=== PATIENT | female | born 2000 | race American Indian/Alaskan Native ===

== ENCOUNTER 2020-10-17 13:49 | Emergency (ER) | payer MEDICAID ==
[2020-10-17 14:15] VITALS: BP 144/65
--- NOTE | 2020-10-17 14:31 | Emergency Department Report ---
ED ENT HPI - General Chief complaint: Dental/Oral Stated complaint: TOOTHACHE Time Seen by Provider: 10/17/20 14:12 Source: patient Mode of arrival: Ambulatory Limitations: No Limitations - History of Present Illness Initial comments: Patient is a 20-year-old female presents emergency room complaints of a toothache that began a week ago. She states that her left lower wisdom tooth is causing her pain. She states that she has noticed some swelling around the area. She states that she went to a dentist and they referred her to oral surgeon. She states that she has an appointment with a oral surgeon in a week. She states that she is not currently on any medications. She denies any fever, nausea, vomiting, diarrhea, difficulty swallowing, difficulty breathing. Past medical history of asthma, anemia, allergic rhinitis. She states that aspirin gives her an asthma exacerbation. - Related Data Previous Rx's Medication Instructions Recorded Last Taken Type Acetaminophen 500 mg PO Q8HR PRN #20 capsule 10/17/20 Unknown Rx Chlorhexidine Mouthwash [Peridex] 15 ml MM BID #1 bottle 10/17/20 Unknown Rx Penicillin Vk [Veetids TAB] 500 mg PO QID 7 Days #56 tablet 10/17/20 Unknown Rx Allergies Allergy/AdvReac Type Severity Reaction Status Date / Time aspirin Allergy Unknown Verified 10/17/20 14:13 ED Dental HPI - General Chief complaint: Dental/Oral Stated complaint: TOOTHACHE Time Seen by Provider: 10/17/20 14:12 Source: patient Mode of arrival: Ambulatory Limitations: No Limitations - Related Data Previous Rx's Medication Instructions Recorded Last Taken Type Acetaminophen 500 mg PO Q8HR PRN #20 capsule 10/17/20 Unknown Rx Chlorhexidine Mouthwash [Peridex] 15 ml MM BID #1 bottle 10/17/20 Unknown Rx Penicillin Vk [Veetids TAB] 500 mg PO QID 7 Days #56 tablet 10/17/20 Unknown Rx Allergies Allergy/AdvReac Type Severity Reaction Status Date / Time aspirin Allergy Unknown Verified 10/17/20 14:13 ED Review of Systems ROS: Stated complaint: TOOTHACHE Other details as noted in HPI Comment: All other systems reviewed and negative ED Past Medical Hx - Past Medical History Hx Asthma: Yes Additional medical history: anemia - Surgical History Past Surgical History?: No - Medications Home Medications: Home Medications Medication Instructions Recorded Confirmed Last Taken Type Acetaminophen 500 mg PO Q8HR PRN #20 capsule 10/17/20 Unknown Rx Chlorhexidine Mouthwash [Peridex] 15 ml MM BID #1 bottle 10/17/20 Unknown Rx Penicillin Vk [Veetids TAB] 500 mg PO QID 7 Days #56 tablet 10/17/20 Unknown Rx ED Physical Exam - General Limitations: No Limitations General appearance: alert, in no apparent distress - Head Head exam: Present: atraumatic, normocephalic - Eye Eye exam: Present: normal appearance - ENT ENT exam: Present: mucous membranes moist, other (left lower wisdom tooth is becoming impacted, there is some edema surrounding the tooth present to the gumline and inner cheek, no fluctuance, no drainage, uvula is midline, no uvular edema or deviation, no trismus, no tongue elevation, no muffled voice, no submandibular edema) - Respiratory Respiratory exam: Absent: respiratory distress, accessory muscle use - Neurological Exam Neurological exam: Present: alert, oriented X3 - Psychiatric Psychiatric exam: Present: normal affect, normal mood - Skin Skin exam: Present: warm, dry, intact ED Course Vital Signs 10/17/20 14:14 Temperature 99.2 F Pulse Rate 65 Respiratory 17 Rate Blood Pressure 144/65 [Right] O2 Sat by Pulse 100 Oximetry ED Medical Decision Making - Medical Decision Making Patient is a 20-year-old female presents emergency room complaints of a toothache that began a week ago. She states that her left lower wisdom tooth is causing her pain. She states that she has noticed some swelling around the area. She states that she went to a dentist and they referred her to oral surgeon. She states that she has an appointment with a oral surgeon in a week. She states that she is not currently on any medications. She denies any fever, nausea, vomiting, diarrhea, difficulty swallowing, difficulty breathing. Past medical history of asthma, anemia, allergic rhinitis. She states that aspirin gives her an asthma exacerbation. Vitals are stable. On exam:left lower wisdom tooth is becoming impacted, there is some edema surrounding the tooth present to the gumline and inner cheek, no fluctuance, no drainage, uvula is midline, no uvular edema or deviation, no trismus, no tongue elevation, no muffled voice, no submandibular edema. Examination appears consistent with early impacted wisdom tooth and some gingival swelling, no signs of significant abscess at this time. Patient given prescription for penicillin VK, chlorhexidine mouthwash, Tylenol. Advised patient Please use medication as prescribed. Please keep your appointment with your oral surgeon. Follow-up with your dentist. Return to emergency room for new or worsening symptoms. Critical care attestation.: If time is entered above; I have spent that time in minutes in the direct care of this critically ill patient, excluding procedure time. ED Disposition Clinical Impression: Dentalgia, Gingivitis Disposition: TO HOME OR SELFCARE Is pt being admited?: No Does the pt Need Aspirin: No Condition: Stable Additional Instructions: Please use medication as prescribed. Please keep your appointment with your oral surgeon. Follow-up with your dentist. Return to emergency room for new or worsening symptoms. Prescriptions: Acetaminophen 500 mg PO Q8HR PRN #20 capsule PRN Reason: pain Chlorhexidine Mouthwash [Peridex] 15 ml MM BID #1 bottle Penicillin Vk [Veetids TAB] 500 mg PO QID 7 Days #56 tablet Referrals: your, oral surgeon [Other] - 2-3 Days your, dentist [Other] - 2-3 Days Time of Disposition: 14:30 Print Language: MACANESE
== END 2020-10-17 14:57 | disposition home or self-care (01) ==
LOC: ED 13:49
DX: K05.10 Chronic gingivitis, plaque induced (principal); K08.89 Other specified disorders of teeth and supporting structures; J45.909 Unspecified asthma, uncomplicated; Z79.899 Other long term (current) drug therapy; Z88.6 Allergy status to analgesic agent
CPT/HCPCS: 99282

== ENCOUNTER 2021-12-26 07:42 | Emergency (ER) | payer MEDICAID ==
[2021-12-26 07:53] VITALS: BP 141/71
[2021-12-26 09:43] LABS: Bilirubin,Urine NEG (Negative); Blood,Urine MOD (Negative); Color,Urine Yellow (Yellow); Urobilinogen,Urine < 2.0 mg/dL (<2.0)
[2021-12-26 09:47] LABS: Bacteria,Urine 2+ /HPF (Negative); Mucus,Urine FEW /HPF
[2021-12-26 09:52] LABS: WBC,Urine > 182.0 /HPF (0.0-6.0)
[2021-12-26 09:53] LABS: HCG Qualitative,Urine Negative (Negative)
--- NOTE | 2021-12-26 10:16 | Emergency Department Report ---
ED General Adult HPI - General Chief complaint: Medical Clearance Stated complaint: PAINFUL KNOT IN BELLY Time Seen by Provider: 12/26/21 08:26 Source: patient Mode of arrival: Ambulatory Limitations: No Limitations - History of Present Illness Initial comments: 21-year-old black female with a past medical history of oh cardiomyopathy presents to the emergency department for evaluation of a knot in her stomach. States that last night she felt a knot in her stomach that has gone away this morning but wanted to come in for further evaluation. She also complains of some dysuria. She denies abdominal pain, fever, nausea, vomiting, and vaginal discharge. She states that her last menstrual period was October 30 and that she missed her last Depo-Provera shot. MD Complaint: Knot in her stomach -: Sudden, Last night Location: abdomen Severity scale (0 -10): 0 Associated Symptoms: denies: chest pain, cough, diaphoresis, fever/chills, headaches, loss of appetite, malaise, nausea/vomiting, seizure, shortness of br eath, syncope, weakness Treatments Prior to Arrival: none - Related Data Previous Rx's Medication Instructions Recorded Last Taken Type Acetaminophen 500 mg PO Q8HR PRN #20 capsule 10/17/20 Unknown Rx Chlorhexidine Mouthwash [Peridex] 15 ml MM BID #1 bottle 10/17/20 Unknown Rx Penicillin Vk [Veetids TAB] 500 mg PO QID 7 Days #56 tablet 10/17/20 Unknown Rx Allergies Allergy/AdvReac Type Severity Reaction Status Date / Time aspirin Allergy Unknown Verified 12/26/21 07:53 ED Review of Systems ROS: Stated complaint: PAINFUL KNOT IN BELLY Other details as noted in HPI Comment: All other systems reviewed and negative Constitutional: denies: chills, fever Eyes: denies: vision change ENT: denies: congestion Respiratory: denies: shortness of breath, SOB with exertion, SOB at rest, stridor, wheezing Cardiovascular: denies: chest pain, palpitations, dyspnea on exertion Gastrointestinal: denies: abdominal pain, nausea, vomiting, diarrhea, hematemesis, melena, hematochezia Genitourinary: dysuria. denies: urgency, frequency, hematuria, discharge, abnormal menses Musculoskeletal: denies: back pain Skin: denies: rash, lesions Neurological: denies: headache, weakness Psychiatric: denies: anxiety, depression ED Past Medical Hx - Past Medical History Hx Asthma: Yes Additional medical history: anemia - Medications Home Medications: Home Medications Medication Instructions Recorded Confirmed Last Taken Type Acetaminophen 500 mg PO Q8HR PRN #20 capsule 10/17/20 Unknown Rx Chlorhexidine Mouthwash [Peridex] 15 ml MM BID #1 bottle 10/17/20 Unknown Rx Penicillin Vk [Veetids TAB] 500 mg PO QID 7 Days #56 tablet 10/17/20 Unknown Rx ED Physical Exam - General Limitations: No Limitations General appearance: alert, in no apparent distress - Head Head exam: Present: atraumatic, normocephalic - Eye Eye exam: Present: normal appearance. Absent: conjunctival injection - Neck Neck exam: Present: normal inspection, full ROM. Absent: tenderness, lymphadenopathy - Respiratory Respiratory exam: Present: normal lung sounds bilaterally. Absent: respiratory distress, wheezes, rales, rhonchi, stridor, chest wall tenderness - Cardiovascular Cardiovascular Exam: Present: regular rate, normal heart sounds - GI/Abdominal GI/Abdominal exam: Present: soft, normal bowel sounds, other (No abnormal not felt anywhere in abdominal area). Absent: distended, tenderness, guarding, rigid, mass, bruit, pulsatile mass - Extremities Exam Extremities exam: Present: normal inspection, normal capillary refill. Absent: pedal edema, joint swelling, calf tenderness - Back Exam Back exam: Present: normal inspection. Absent: CVA tenderness (R), CVA tenderness (L), vertebral tenderness - Neurological Exam Neurological exam: Present: alert, oriented X3, normal gait - Psychiatric Psychiatric exam: Present: normal affect, normal mood - Skin Skin exam: Present: warm, dry, intact, normal color ED Course Vital Signs 12/26/21 07:50 Temperature 97.1 F L Pulse Rate 90 Respiratory 18 Rate Blood Pressure 141/71 [Left] O2 Sat by Pulse 99 Oximetry ED Medical Decision Making - Medical Decision Making 21-year-old black female with a past medical history of oh cardiomyopathy presents to the emergency department for evaluation of a knot in her stomach. States that last night she felt a knot in her stomach that has gone away this morning but wanted to come in for further evaluation. She also complains of some dysuria. She denies abdominal pain, fever, nausea, vomiting, and vaginal discharge. She states that her last menstrual period was October 30 and that she missed her last Depo-Provera shot. Physical exam unremarkable. Patient had this requesting results, and she was notified that she had a negative test but UA was positive for UTI. She was notified that she will be treated with antibiotics for UTI, but patient stated that she does not take pills that she only takes herbal medication and did not want a prescription for antibiotics. Patient went on to request CT scan and stated that she needed to just see if there was something in her abdominal area. Explained to patient that there was no indication for CT scan at this time given that she had normal vital signs, no signs of knot in abdomen, no fever, in no distress noted. Patient stated that she had Medicaid and she should be able to give anything that she requests. Explained to patient that her request was not the final decision on whether or not she gets a test so patient decided to leave without finishing discharge process. Critical care attestation.: If time is entered above; I have spent that time in minutes in the direct care of this critically ill patient, excluding procedure time. ED Disposition Clinical Impression: Left against medical advice Disposition: 07 LEFT AGAINST MEDICAL ADVICE Is pt being admited?: No Condition: Stable Referrals: PRIMARY CARE, [Primary Care Provider] - 3-5 Days
== END 2021-12-26 10:18 | disposition left against medical advice (07) ==
LOC: ED 07:42
DX: R30.0 Dysuria (principal); R19.00 Intra-abdominal and pelvic swelling, mass and lump, unspecified site; J45.909 Unspecified asthma, uncomplicated; D64.9 Anemia, unspecified; Z88.6 Allergy status to analgesic agent
CPT/HCPCS: 81001; 81025; 99283

== ENCOUNTER 2022-01-07 10:32 | Emergency (ER) | payer MEDICAID ==
--- NOTE | 2022-01-07 11:24 | Emergency Department Report ---
Stated Complaint: PAINFUL INTERCOURSE Time Seen by Provider: 01/07/22 11:22 - HPI History of Present Illness: Painful intercourse - ROS Review of Systems: Denies abdominal pain, dysuria, vaginal discharge, fever. - Exam Physical Exam: Alert and oriented x3 MSE screening note: Focused history and physical exam performed. Due to findings the following was ordered: ED Disposition for MSE Condition: Stable
[2022-01-07 11:25] VITALS: BP 117/70
[2022-01-07 12:33] LABS: HCG Qualitative,Urine Negative (Negative)
[2022-01-07 12:52] LABS: Bilirubin,Urine Negative (Negative); Blood,Urine Negative (Negative); Color,Urine Yellow (Yellow); Protein,Urine <30 mg dL mg/dL (Negative); Urobilinogen,Urine < 2.0 mg/dL (<2.0)
[2022-01-07 13:12] LABS: Mucus,Urine 2+ /HPF
== END 2022-01-08 02:50 | disposition left against medical advice (07) ==
LOC: ED 10:32
DX: Z00.00 Encounter for general adult medical examination without abnormal findings (principal); Z53.21 Procedure and treatment not carried out due to patient leaving prior to being seen by health care provider
CPT/HCPCS: 81001; 81025

== ENCOUNTER 2022-01-08 00:31 | Emergency (ER) | payer MEDICAID | END 2022-01-08 00:58 | disposition left against medical advice (07) | LOC: ED 00:31 | DX: N94.10 Unspecified dyspareunia (principal); Z53.21 Procedure and treatment not carried out due to patient leaving prior to being seen by health care provider ==